=== PATIENT | female | born 1945 | race Two or more races ===

== ENCOUNTER 2017-02-27 14:54 | Emergency (ER) | payer OTHER ==
[~2017-02-27] VITALS: Ht 152.4 cm; Wt 66.2 kg
[2017-02-27 15:24] LABS: Basophils # (auto) 0 uL; Basophils % (auto) 0.4 % (0.0-2.0); CONDITION Y; Eosinophils # (auto) 0.1 uL; Eosinophils % (auto) 1.2 % (0.0-7.0); Hematocrit 41.9 % (36.0-46.0); Hemoglobin 14.3 g/dL (12.2-16.2); Lymphocytes % (auto) 23.8 % (10.0-50.0); Mean Corpuscular Hemoglobin 32.5 pg (28.0-32.0); Mean Corpuscular Hgb Conc. 34.2 g/dL (32.0-36.0); Mean Corpuscular Volume 95.2 fL (80.0-100.0); Mean Platelet Volume 9.1 fL (7.4-10.4); Monocytes # (auto) 0.6 uL; Neutrophils # (auto) 5.8 uL; Neutrophils % (auto) 67.6 % (37.0-80.0); Platelet Count (auto) 264 10^3/uL (140-450); White Blood Cell 8.6 10^3/uL (4.4-10.8)
[2017-02-27 15:47] LABS: Anion Gap 8 (5-15); Aspartate Aminotransferase 11 U/L (15-37); BUN/Creatinine Ratio 23.7; Blood Urea Nitrogen 18 mg/dL (7-18); Carbon Dioxide 23 mmol/L (21-32); Chloride 108 mmol/L (98-107); GFR African American 97 mL/min; GFR Non-African American 80 mL/min; Glucose 74 mg/dL (74-106); Potassium 4.1 mmol/L (3.5-5.1); Sodium 139 mmol/L (136-145)
[2017-02-27 15:51] LABS: Alkaline Phosphatase 82 U/L (45-117); Bilirubin, Total 0.5 mg/dL (0.2-1.0); Total Protein 8.1 g/dL (6.4-8.2)
[2017-02-27 15:51] LABS: Urine Bilirubin Negative (Negative); Urine Blood Negative /uL (Negative); Urine Color Yellow (Yellow); Urine Glucose Normal (Normal); Urine Ketone Negative (Negative); Urine Nitrite Negative (Negative); Urine RBC 2 /hpf (0 - 4); Urine Squamous Epithelial Cell FEW /hpf (<5); Urine Urobilinogen Normal (Negative); Urine pH 6.5 (5.0-8.0)
[2017-02-28] MEDS ORDERED: SODIUM CHLORIDE 0.9% 1,000 ML IV ONE (01:30)
[2017-02-28] MEDS ORDERED: cefTRIAXone 1GM/50ML D5W 50 ML IV ONE (01:30)
[2017-02-28 06:10] VITALS: BP 87/51
== END 2017-02-28 07:23 | disposition home or self-care (01) ==
LOC: ER 14:59
DX: K57.11 Diverticulosis of small intestine without perforation or abscess with bleeding (principal); K59.00 Constipation, unspecified
CPT/HCPCS: 36415; 74176; 80053; 81001; 84484; 85025; 93005; 94761; 96365; 99285; J0696; J7030

== ENCOUNTER 2017-09-18 06:36 | Day surgery (SDC) | payer OTHER ==
[2017-09-16 14:05] LABS: Basophils # (auto) 0 uL; Basophils % (auto) 0.6 % (0.0-2.0); Eosinophils # (auto) 0.1 uL; Eosinophils % (auto) 1.6 % (0.0-7.0); Hemoglobin 14.2 g/dL (12.2-16.2); Lymphocytes # (auto) 1.7 uL; Lymphocytes % (auto) 29.3 % (10.0-50.0); Mean Corpuscular Hemoglobin 32.1 pg (28.0-32.0); Monocytes # (auto) 0.4 uL; Monocytes % (auto) 7.6 % (0.0-12.0); Neutrophils # (auto) 3.4 uL; Neutrophils % (auto) 60.9 % (37.0-80.0); Platelet Count (auto) 261 10^3/uL (140-450); Red Blood Cells 4.43 10^6/uL (4.0-5.20); White Blood Cell 5.6 10^3/uL (4.4-10.8)
[2017-09-16 14:22] LABS: BUN/Creatinine Ratio 26.4; Calcium 9.4 mg/dL (8.5-10.1); Potassium 4.3 mmol/L (3.5-5.1)
[2017-09-16 14:24] LABS: INR 0.96 (0.9-1.15); Partial Thromboplastin Time 30.8 sec (22.64-33.71); Prothrombin Time 10.5 sec (9.37-12.3)
[2017-09-16 14:26] LABS: Urine Bacteria FEW /hpf (None Seen); Urine Blood Negative /uL (Negative); Urine Specific Gravity 1.005 (1.001-1.035); Urine WBC 9 /hpf (0 - 5)
[~2017-09-18] VITALS: Ht 152.4 cm; Wt 65.8 kg
[~2017-09-18 06:36] MED LIST: NAP500T PO; OMEG100078 PO
[2017-09-18] MEDS ORDERED: ceFAZolin 1GM/50ML 50 ML IV ONE (07:06)
[2017-09-18] MEDS ORDERED: ceFAZolin 1GM VL ONE (08:43)
[2017-09-18] MEDS ORDERED: CONJ ESTROGENS 0.625MG/GM VAG CRM 30GM PV ONE (08:44)
[2017-09-18] MEDS ORDERED: BUPIVACAINE W/ EPINEPH 0.25% INJ 50ML MDV ONE (08:44)
[2017-09-18] MEDS ORDERED: VASOPRESSIN 20 UNIT/ML ONE (09:07)
[2017-09-18] MEDS ORDERED: DEXAMETHASONE SOD PHOS 10MG/1ML VIAL INJ ONE (09:11)
[2017-09-18] MEDS ORDERED: MIDAZOLAM HCL 1MG/1ML-2 ML VIAL ONE (09:11)
[2017-09-18] MEDS ORDERED: PROPOFOL 10 MG/ML 20 ML IV ONE (09:11)
[2017-09-18] MEDS ORDERED: fentaNYL CITRATE 100 MCG/2 ML VL ONE (09:11)
[2017-09-18] MEDS ORDERED: MEPERIDINE HCL (50 MG/ML) 1 ML VIAL ONE (09:12)
[2017-09-18] MEDS ORDERED: MORPHINE SULFATE 4 MG/ML SYR/VIAL IV PRN (09:15)
[2017-09-18] MEDS ORDERED: LABETALOL HCL 5 MG/ML 4ML SYRINGE IV PRN (09:15)
[2017-09-18] MEDS ORDERED: MIDAZOLAM HCL 1MG/1ML-2 ML VIAL IV PRN (09:15)
[2017-09-18] MEDS ORDERED: HYDROmorphone HCL 2 MG/ML VL IV PRN (09:15)
[2017-09-18] MEDS ORDERED: ACCU-CHEK COMFORT CURVE STRIP VI ONE (09:15)
[2017-09-18] MEDS ORDERED: ePHEDrine SULFATE 50 MG/ML AMP IV PRN (09:15)
[2017-09-18] MEDS ORDERED: KETOROLAC TROMETH 30 MG/ML 1ML VIAL IV ONE (09:15)
[2017-09-18] MEDS ORDERED: ONDANSETRON HCL 4 MG/2 ML VIAL IV ONE (09:15)
[2017-09-18] MEDS ORDERED: KETOROLAC TROMETH 30 MG/ML 1ML VIAL ONE (09:48)
[2017-09-18] MEDS ORDERED: MORPHINE SULFATE 4 MG/ML SYR/VIAL IV ONE (10:00)
[2017-09-18] MEDS ORDERED: SUCCINYLCHOLINE CHLORIDE 20 MG/ML 10ML VIAL IV ONE (10:11)
[2017-09-18 12:00] VITALS: BP 111/60
== END 2017-09-18 12:45 | disposition home or self-care (01) ==
LOC: SUR 06:36
PROVIDERS: ATTEND Obstetrics & Gynecology
DX: N81.10 Cystocele, unspecified (principal); N81.6 Rectocele; K46.9 Unspecified abdominal hernia without obstruction or gangrene; D69.6 Thrombocytopenia, unspecified; I10 Essential (primary) hypertension; E11.9 Type 2 diabetes mellitus without complications; Z90.710 Acquired absence of both cervix and uterus; E66.9 Obesity, unspecified; Z68.28 Body mass index [BMI] 28.0-28.9, adult
CPT/HCPCS: 36415; 57106; 57240; 57288; 80048; 81001; 85025; 85610; 85730; 87086; 87088; 87186; J0330; J0690; J1100; J1885; J2175; J2250; J2704; J3010; C1771

== ENCOUNTER 2018-04-23 14:26 | Day surgery (SDC) | payer OTHER ==
[2018-04-20 14:17] LABS: Basophils # (auto) 0 uL; Basophils % (auto) 0.3 % (0.0-2.0); Eosinophils # (auto) 0.1 uL; Eosinophils % (auto) 0.6 % (0.0-7.0); Hematocrit 42.9 % (36.0-46.0); Hemoglobin 14.4 g/dL (12.2-16.2); Lymphocytes # (auto) 1.9 uL; Lymphocytes % (auto) 21.8 % (10.0-50.0); Mean Corpuscular Hemoglobin 32.2 pg (28.0-32.0); Mean Corpuscular Hgb Conc. 33.5 g/dL (32.0-36.0); Mean Corpuscular Volume 96.1 fL (80.0-100.0); Monocytes # (auto) 0.6 uL; Monocytes % (auto) 6.7 % (0.0-12.0); Neutrophils # (auto) 6.3 uL; Neutrophils % (auto) 70.6 % (37.0-80.0); Platelet Count (auto) 230 10^3/uL (140-450); Red Blood Cells 4.46 10^6/uL (4.0-5.20); Red Cell Distribution Width 13.5 % (11.8-14.3); White Blood Cell 8.9 10^3/uL (4.4-10.8)
[2018-04-20 14:20] LABS: Urine Bacteria FEW /hpf (None Seen); Urine Blood TRACE /uL (Negative); Urine Specific Gravity 1.004 (1.001-1.035); Urine WBC 14 /hpf (0 - 5)
[2018-04-20 14:32] LABS: INR 0.96 (0.9-1.15); Partial Thromboplastin Time 30.6 sec (23.78-33.04); Prothrombin Time 10.3 sec (9.27-12.13)
[2018-04-20 14:43] LABS: BUN/Creatinine Ratio 23.1; Calcium 9.2 mg/dL (8.5-10.1); Potassium 4.1 mmol/L (3.5-5.1)
[~2018-04-23] VITALS: Ht 152.4 cm; Wt 63.5 kg
[~2018-04-23 14:26] MED LIST changes: +ACET-1304 PO
[2018-04-23] MEDS ORDERED: ceFAZolin 1GM/50ML 50 ML IV ONE (14:38)
[2018-04-23] MEDS ORDERED: MORPHINE SULFATE 4 MG/ML SYR/VIAL IV ONE (16:00)
[2018-04-23] MEDS ORDERED: ePHEDrine SULFATE 50 MG/ML AMP IV PRN (16:00)
[2018-04-23] MEDS ORDERED: ONDANSETRON HCL 4 MG/2 ML VIAL IV ONE (16:00)
[2018-04-23] MEDS ORDERED: KETOROLAC TROMETH 30 MG/ML 1ML VIAL IV ONE (16:00)
[2018-04-23] MEDS ORDERED: MORPHINE SULFATE 4 MG/ML SYR/VIAL IV PRN (16:00)
[2018-04-23] MEDS ORDERED: MIDAZOLAM HCL 1MG/1ML-2 ML VIAL IV PRN (16:00)
[2018-04-23] MEDS ORDERED: HYDROmorphone HCL 2 MG/ML VL IV PRN (16:00)
[2018-04-23] MEDS ORDERED: LABETALOL HCL 5 MG/ML 4ML SYRINGE IV PRN (16:00)
[2018-04-23] MEDS ORDERED: fentaNYL CITRATE 100 MCG/2 ML VL ONE (16:18)
[2018-04-23] MEDS ORDERED: MIDAZOLAM HCL 1MG/1ML-2 ML VIAL ONE (16:19)
[2018-04-23] MEDS ORDERED: KETOROLAC TROMETH 30 MG/ML 1ML VIAL ONE (16:20)
[2018-04-23] MEDS ORDERED: DEXAMETHASONE SOD PHOS 10MG/1ML VIAL INJ ONE (16:20)
[2018-04-23] MEDS ORDERED: PROPOFOL 10 MG/ML 20 ML IV ONE (16:20)
[2018-04-23] MEDS ORDERED: ONDANSETRON HCL 4 MG/2 ML VIAL ONE (16:21)
[2018-04-23] MEDS ORDERED: BUPIVACAINE W/ EPINEPH 0.25% INJ 50ML MDV ONE (16:31)
[2018-04-23] MEDS ORDERED: BUPIVACAINE W/ EPINEPH 0.5% MPF 30ML VIAL IJ ONE (16:31)
[2018-04-23] MEDS ORDERED: LIDOCAINE W/ EPINEPHRINE 1 % INJ 30ML ONE (16:31)
[2018-04-23 17:34] VITALS: BP 114/64
== END 2018-04-23 17:45 | disposition home or self-care (01) ==
LOC: SUR 14:26
PROVIDERS: ATTEND Obstetrics & Gynecology
DX: N76.1 Subacute and chronic vaginitis (principal); V89.2XXA Person injured in unspecified motor-vehicle accident, traffic, initial encounter; Z79.1 Long term (current) use of non-steroidal anti-inflammatories (NSAID); Z79.2 Long term (current) use of antibiotics; Z80.9 Family history of malignant neoplasm, unspecified; Z82.49 Family history of ischemic heart disease and other diseases of the circulatory system; Z79.891 Long term (current) use of opiate analgesic; Z79.899 Other long term (current) drug therapy; Z90.710 Acquired absence of both cervix and uterus
CPT/HCPCS: 36415; 57135; 80048; 81001; 85025; 85610; 85730; 87070; 87075; 87077; 87086; 87088; 87186; 87205; 88305; J0690; J1100; J1885; J2001; J2250; J2405; J2704; J3010

== ENCOUNTER 2020-11-11 18:38 | Emergency (ER) | payer OTHER ==
[~2020-11-11] VITALS: Ht 152.4 cm; Wt 67.1 kg
[2020-11-11 21:20] VITALS: BP 109/90
== END 2020-11-11 22:46 | disposition home or self-care (01) ==
LOC: ER 18:38
DX: S16.1XXA Strain of muscle, fascia and tendon at neck level, initial encounter (principal); G44.309 Post-traumatic headache, unspecified, not intractable; M19.90 Unspecified osteoarthritis, unspecified site; Z79.899 Other long term (current) drug therapy; V43.92XA Unspecified car occupant injured in collision with other type car in traffic accident, initial encounter; Y93.89 Activity, other specified; Y92.488 Other paved roadways as the place of occurrence of the external cause; Y99.8 Other external cause status
CPT/HCPCS: 70450; 71250; 72125; 74176

== ENCOUNTER 2023-08-15 15:59 | Inpatient (IN) | payer OTHER ==
[~2023-08-15] VITALS: Ht 152.4 cm; Wt 72.0 kg
[~2023-08-15 15:59] MED LIST changes: +OMEG-20 PO; -OMEG100078 PO
[2023-08-15] MEDS ORDERED: KETOROLAC TROMETH 60MG/2ML VIAL IM ONE (16:45)
[2023-08-15] MEDS ORDERED: ONDANSETRON ODT 4 MG TAB PO ONE (16:45)
[2023-08-15 17:47] LABS: Basophils # (auto) 0 10 ^3/uL (0-0.2); Basophils % (auto) 0.2 % (0.0-2.0); Eosinophils # (auto) 0 10 ^3/uL (0-0.8); Eosinophils % (auto) 0.1 % (0.0-7.0); Hematocrit 43.1 % (36.0-46.0); Hemoglobin 14.4 g/dL (12.2-16.2); Mean Corpuscular Hemoglobin 31.7 pg (28.0-32.0); Mean Corpuscular Hgb Conc. 33.4 g/dL (32.0-36.0); Mean Corpuscular Volume 95.1 fL (80.0-100.0); Monocytes # (auto) 0.3 10 ^3/uL (0-1.3); Monocytes % (auto) 3.1 % (0.0-12.0); Neutrophils # (auto) 9.7 10 ^3/uL (1.6-8.6); Neutrophils % (auto) 87.6 % (37.0-80.0); Red Blood Cells 4.53 10^6/uL (4.0-5.20); Red Cell Distribution Width 13.1 % (11.8-14.3)
[2023-08-15 18:01] LABS: Alanine Aminotransferase 16 U/L (7-40); Albumin 4.7 g/dL (3.2-4.8); Alkaline Phosphatase 94 U/L (46-116); Anion Gap 6 (5-15); Aspartate Aminotransferase 15 U/L (13-40); BUN/Creatinine Ratio 14.6 (10.0-20.0); Blood Urea Nitrogen 12 mg/dL (9-23); Carbon Dioxide 28 mmol/L (20-30); Chloride 96 mmol/L (98-107); Glucose 112 mg/dL (74-106); Potassium 4.3 mmol/L (3.5-5.1); Sodium 130 mmol/L (136-145)
[2023-08-15 18:02] LABS: Bilirubin, Total 0.5 mg/dL (0.2-1.0); Total Protein 7.5 g/dL (5.7-8.2)
[2023-08-15 19:38] LABS: Lipase 32 U/L (12-53)
[2023-08-15] MEDS ORDERED: ONDANSETRON HCL 4 MG/2 ML VIAL IV PRN (19:45)
[2023-08-15] MEDS ORDERED: MORPHINE SULFATE INJ 2 MG/ml SYRG IV PRN (19:45)
[2023-08-15 21:38] VITALS: PULSE 70; RESP 16; O2SAT 97
[2023-08-15] MEDS ORDERED: FAMOTIDINE (10MG/ML) 2ML VL IV ONE (22:00)
[2023-08-15] MEDS: PIPERACILLIN-TAZOB 3.375GM 100 ML IV SCH (22:14)
[2023-08-15] MEDS ORDERED: diphenhdrAMINE HCL 50 MG/1 ML VL IV PRN (23:45)
[2023-08-16] VITALS (8 sets, daily range): BP systolic 118–144; BP diastolic 53–72; PULSE 67–89; RESP 16–20; TEMP 97.1–98.6; O2SAT 92–98
[2023-08-16] MEDS: PIPERACILLIN-TAZOB 3.375GM 100 ML IV SCH ×4 (00:11→22:49)
[2023-08-16] MEDS ORDERED: SODIUM CHLORIDE 0.9% 1,000 ML IV ONE (02:00)
[2023-08-16] MEDS ORDERED: diphenhdrAMINE HCL 50 MG/1 ML VL IV ONE (06:00)
[2023-08-16] MEDS ORDERED: PNEUMOCOCCAL VACC POLYS 25 MCG/0.5 ML VIAL IM ONE (07:00)
[2023-08-16] MEDS: FAMOTIDINE (10MG/ML) 2ML VL IV SCH ×2 (07:57→22:49)
[2023-08-16 08:20] LABS: Chloride 99 mmol/L (98-107); Sodium 131 mmol/L (136-145)
[2023-08-16 08:21] LABS: Anion Gap 5 (5-15); Calcium 9.5 mg/dL (8.5-10.1); Carbon Dioxide 27 mmol/L (20-30)
[2023-08-16 08:26] LABS: BUN/Creatinine Ratio 8.8 (10.0-20.0); Blood Urea Nitrogen 9 mg/dL (9-23); Glucose 106 mg/dL (74-106)
[2023-08-16] MEDS ORDERED: FAMOTIDINE (10MG/ML) 2ML VL IV SCH (10:00)
[2023-08-16 10:23] LABS: Urine Bacteria NONE SEEN /hpf (None Seen); Urine Blood Negative /uL (Negative); Urine Clarity Clear (Clear); Urine Color Colorless (Yellow); Urine Protein, UAD Negative (Negative); Urine Urobilinogen Normal (Negative); Urine WBC 17 /hpf (0 - 5)
[2023-08-17] VITALS (8 sets, daily range): BP systolic 126–144; BP diastolic 65–69; PULSE 70–85; RESP 16–17; TEMP 97.5–98.2; O2SAT 94–99
[2023-08-17] MEDS: PIPERACILLIN-TAZOB 3.375GM 100 ML IV SCH ×3 (05:26→21:10)
[2023-08-17 06:33] LABS: Chloride 103 mmol/L (98-107); Sodium 136 mmol/L (136-145)
[2023-08-17 06:34] LABS: Anion Gap 11 (5-15); Calcium 8.8 mg/dL (8.7-10.4); Carbon Dioxide 22 mmol/L (20-30)
[2023-08-17 06:39] LABS: BUN/Creatinine Ratio 9.2 (10.0-20.0); Blood Urea Nitrogen 8 mg/dL (9-23); Glucose 81 mg/dL (74-106)
[2023-08-17] MEDS: FAMOTIDINE (10MG/ML) 2ML VL IV SCH ×2 (09:02→21:09)
[2023-08-17] MEDS ORDERED: FOSF3POW PO (11:57)
[2023-08-17] MEDS: SODIUM CHLORIDE 0.9% 1,000 ML IV SCH (17:00)
[2023-08-18] VITALS (7 sets, daily range): BP systolic 125–154; BP diastolic 53–74; PULSE 68–98; RESP 16–20; TEMP 97.7–98.4; O2SAT 18–96
[2023-08-18] MEDS: PIPERACILLIN-TAZOB 3.375GM 100 ML IV SCH ×2 (05:58→14:52)
[2023-08-18 06:21] LABS: Chloride 103 mmol/L (98-107); Potassium 3.7 mmol/L (3.5-5.1); Sodium 135 mmol/L (136-145)
[2023-08-18 06:22] LABS: Anion Gap 12 (5-15); Carbon Dioxide 20 mmol/L (20-30)
[2023-08-18 06:27] LABS: BUN/Creatinine Ratio 12.2 (10.0-20.0); Blood Urea Nitrogen 10 mg/dL (9-23); Glucose 55 mg/dL (74-106)
[2023-08-18 09:30] LABS: Hepatitis B Surface Antigen Negative (Negative)
[2023-08-18 09:51] LABS: Hepatitis C Antibody Negative (Negative)
[2023-08-18] MEDS ORDERED: GASTROGRAFIN 120 ML SOL ONE (09:51)
[2023-08-18] MEDS: FAMOTIDINE (10MG/ML) 2ML VL IV SCH ×2 (09:57→21:34)
[2023-08-18] MEDS: SODIUM CHLORIDE 0.9% 1,000 ML IV SCH (09:57)
[2023-08-18] MEDS: D5W/SOD CHLO 0.9% 1,000 ML IV SCH ×2 (12:53→19:00)
[2023-08-19] MEDS: D5W/SOD CHLO 0.9% 1,000 ML IV SCH ×2 (03:26→11:00)
[2023-08-19 05:00] VITALS: BP 104/49; PULSE 67; RESP 17; TEMP 97.7; O2SAT 96
[2023-08-19 08:00] VITALS: PULSE 83; PULSE 92; RESP 16; O2SAT 95
[2023-08-19] MEDS ORDERED: cefTRIAXone 1GM/50ML D5W 50 ML IV SCH (09:00)
[2023-08-19] MEDS: FAMOTIDINE (10MG/ML) 2ML VL IV SCH (09:36)
[2023-08-19 18:53] VITALS: BP 120/69; PULSE 100; RESP 18; TEMP 98.2; O2SAT 97
== END 2023-08-19 19:55 | disposition home or self-care (01) | DRG 389 ==
LOC: ER 15:59 → TELE 19:58 → TELE-CENTR 08-16 05:04
PROVIDERS: ADMIT Nurse Practitioner Family; ATTEND Nurse Practitioner Family
PROC: 0D9670Z Drainage of Stomach with Drainage Device, Via Natural or Artificial Opening (ICD-10-PCS; principal; 2023-08-16)
DX: K56.609 Unspecified intestinal obstruction, unspecified as to partial versus complete obstruction (principal); E87.1 Hypo-osmolality and hyponatremia; N39.0 Urinary tract infection, site not specified; M19.90 Unspecified osteoarthritis, unspecified site; Z90.710 Acquired absence of both cervix and uterus; Z82.49 Family history of ischemic heart disease and other diseases of the circulatory system
CPT/HCPCS: 36415; 71045; 74176; 74250; 80048; 80053; 81001; 82962; 83605; 83690; 85025; 86803; 87086; 87340; 93005; G0378; J1885; J2405; J2543; J3490; J7042; Q0162

== ENCOUNTER 2025-02-03 14:14 | Emergency (ER) | payer OTHER ==
[~2025-02-03] VITALS: Ht 154.9 cm; Wt 67.5 kg
[~2025-02-03 14:14] MED LIST changes: -ACET-1304 PO; +FOSF3POW PO; -NAP500T PO; -OMEG-20 PO
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
[2025-02-03] MEDS: ACETAMINOPHEN 325 MG TAB PO ONE (15:52)
[2025-02-03 17:00] VITALS: BP 120/72; PULSE 83; RESP 20; TEMP 98.3; O2SAT 96
== END 2025-02-03 17:34 | disposition home or self-care (01) ==
LOC: ER 14:14
DX: S16.1XXA Strain of muscle, fascia and tendon at neck level, initial encounter (principal); S80.11XA Contusion of right lower leg, initial encounter; M19.90 Unspecified osteoarthritis, unspecified site; Z90.710 Acquired absence of both cervix and uterus; V47.5XXA Car driver injured in collision with fixed or stationary object in traffic accident, initial encounter; Y93.I9 Activity, other involving external motion; Y92.488 Other paved roadways as the place of occurrence of the external cause; Y99.8 Other external cause status
CPT/HCPCS: 72040; 73590